=== PATIENT | female | born 1975 | race Caucasian/White ===

== ENCOUNTER 2017-07-20 09:05 | Emergency (ER) | payer OTHER, SELFPAY ==
[2017-07-20 09:16] VITALS: BP 104/52; PULSE 89; RESP 18; TEMP 37.6; O2SAT 95; BMI 24.9
--- NOTE | 2017-07-20 10:21 | HMH.EDFEV ---
ED Disposition Clinical Impression: Rhonchi at right lung base Disposition: Home, Self-Care Condition on Discharge: Good Instructions: Cough Additional Instructions: Zithromax, Albuterol, See [place] in two to five days for recheck Prescriptions: Albuterol Sulfate [Proventil-HFA 90mcg/puff Inh] 1 - 2 puffs IH Q4HP PRN #1 inh PRN Reason: Cough Azithromycin [Azithromycin 500mg Tab] 500 mg PO DAILY #6 tab - Critical Care Critical Care Time: No Attestation: On 07/20/17, the high probability of a clinically significant, sudden or life threatening deterioration of the following system(s) required my full and direct attention, intervention and personal management. The time I documented below is in addition to time spent performing reported procedures but includes the following listed in this critical care notation. Medical Decision Making Vital Signs: 07/20/17 09:16 Temperature 99.7 F H Temperature Source Oral Pulse Rate [Right Brachial] 89 Respiratory Rate 18 Blood Pressure [Right Arm] 104/52 Blood Pressure Mean [Right Arm] 69 Blood Pressure Source [Right Arm] Automatic Cuff Blood Pressure Position [Right Arm] Sitting 02 Sat by Pulse Oximetry 95 Oxygen Delivery Method Room Air - Lab Data Lab results reviewed: Yes: I reviewed the patient's lab results. Lab Results 07/20/17 09:18: Influenza Type A Ag Negative, Influenza Type B Ag Negative - Jag Inquiry Pt receiving controlled substance: No Fever HPI - General Chief Complaint: Fever Stated Complaint: fever body aches back pain Mode of Arrival: Ambulatory Limitations: No Limitations Description of Symptoms (Recalled from ER Triage Doc. by RN): flu like symptoms - History of Present Illness HPI Narrative: Several day history of productive cough. She is a smoker. No vomiting. No rashes. He has myalgias. She is out of her albuterol. complaint: fever Onset (ago): day(s) (5) Temperature Source: subjective Context: multiple patients with similar symptoms Associated symptoms: myalgias, cough Relieving factors: ibuprofen Exacerbating factors: nothing Treatments prior to arrival fever: ibuprofen - Related Data Previous Rx's Medication Instructions Recorded Albuterol Sulfate [Proventil-HFA 1 - 2 puffs IH Q4HP PRN #1 inh 07/20/17 90mcg/puff Inh] Azithromycin [Azithromycin 500mg 500 mg PO DAILY #6 tab 07/20/17 Tab] Allergies Allergy/AdvReac Type Severity Reaction Status Date / Time NKDA Allergy Unknown Uncoded 07/04/17 15:29 [facility] History - *Social History Educational Level: Completed High School Smoking Status: Current every day smoker Tobacco Type: cigarettes # Packs/Day (cigarettes): 1 #Yrs smoked (if former smoker): 25 Alcohol Intake: never - Psychiatric History Expresses thoughts of harming self/others: None Suicide Plan Description: No Plan ROS Obtained: Yes All systems reviewed & no additional complaints except as noted Physical Exam - General General appearance: alert, in no apparent distress - Head Head exam: atraumatic, normocephalic, normal inspection - Eye Eye exam: Present: normal appearance, PERRL, EOMI - ENT ENT exam: Present: normal exam, normal oropharynx, mucous membranes moist, TM's normal bilaterally, normal external ear exam - Neck Neck exam: Present: normal inspection, full ROM, trachea midline - Chest Chest inspection: Present: normal inspection, symmetric chest wall rise. Absent: tenderness - Respiratory Respiratory exam: Absent: normal lung sounds bilaterally, respiratory distress - Expanded Respiratory Exam Location: Right: rhonchi, Lower: rhonchi - Cardiovascular Cardiovascular exam: Present: regular rate, normal rhythm. Absent: JVD - Abdominal Exam Abdominal exam: Present: soft, normal bowel sounds. Absent: distention, tenderness, guarding - Neurological Exam Neurological exam: Present: alert, oriented X3 - Skin Skin exam: Present: warm,
--- NOTE | 2017-07-20 10:24 | ED_ITS ---
ED Disposition Clinical Impression: Rhonchi at right lung base Disposition: Home, Self-Care Condition on Discharge: Good Instructions: Cough Additional Instructions: Zithromax, Albuterol, See [place] in two to five days for recheck Prescriptions: Albuterol Sulfate [Proventil-HFA 90mcg/puff Inh] 1 - 2 puffs IH Q4HP PRN # 1 inh PRN Reason: Cough Azithromycin [Azithromycin 500mg Tab] 500 mg PO DAILY #6 tab - Critical Care Critical Care Time: No Attestation: On 07/20/17, the high probability of a clinically significant, sudden or life threatening deterioration of the following system(s) required my full and direct attention, intervention and personal management. The time I documented below is in addition to time spent performing reported procedures but includes the following listed in this critical care notation. Medical Decision Making Vital Signs: 07/20/17 09:16 Temperature 99.7 F H Temperature Source Oral Pulse Rate [Right Brachial] 89 Respiratory Rate 18 Blood Pressure [Right Arm] 104/52 Blood Pressure Mean [Right Arm] 69 Blood Pressure Source [Right Arm] Automatic Cuff Blood Pressure Position [Right Arm] Sitting 02 Sat by Pulse Oximetry 95 Oxygen Delivery Method Room Air - Lab Data Lab results reviewed: Yes: I reviewed the patient's lab results. Lab Results 07/20/17 09:18: Influenza Type A Ag Negative, Influenza Type B Ag Negative - Jag Inquiry Pt receiving controlled substance: No Fever HPI - General Chief Complaint: Fever Stated Complaint: fever body aches back pain Mode of Arrival: Ambulatory Limitations: No Limitations Description of Symptoms (Recalled from ER Triage Doc. by RN): flu like symptoms - History of Present Illness HPI Narrative: Several day history of productive cough. She is a smoker. No vomiting. No rashes. He has myalgias. She is out of her albuterol. complaint: fever Onset (ago): day(s) (5) Temperature Source: subjective Context: multiple patients with similar symptoms Associated symptoms: myalgias, cough Relieving factors: ibuprofen Exacerbating factors: nothing Treatments prior to arrival fever: ibuprofen - Related Data Previous Rx's Medication Instructions Recorded Albuterol Sulfate [Proventil-HFA 1 - 2 puffs IH Q4HP PRN #1 inh 07/20/17 90mcg/puff Inh] Azithromycin [Azithromycin 500mg 500 mg PO DAILY #6 tab 07/20/17 Tab] Allergies Allergy/AdvReac Type Severity Reaction Status Date / Time NKDA Allergy Unknown Uncoded 07/04/17 15:29 [facility] History - *Social History Educational Level: Completed High School Smoking Status: Current every day smoker Tobacco Type: cigarettes # Packs/Day (cigarettes): 1 #Yrs smoked (if former smoker): 25 Alcohol Intake: never - Psychiatric History Expresses thoughts of harming self/others: None Suicide Plan Description: No Plan ROS Obtained: Yes All systems reviewed & no additional complaints except as noted Physical Exam - General General appearance: alert, in no apparent distress - Head Head exam: atraumatic, normocephalic, normal inspection - Eye Eye exam: Present: normal appearance, PERRL, EOMI - ENT ENT exam: Present: normal exam, normal oropharynx, mucous membranes moist, TM's normal bilaterally, normal external ear exam
[2017-07-20 10:49] VITALS: BP 110/54; PULSE 72; RESP 16
== END 2017-07-20 10:48 | disposition home or self-care (01) ==
PROVIDERS: Emergency Provider Emergency Medicine
DX: R09.89 Other specified symptoms and signs involving the circulatory and respiratory systems (principal); R05 Cough; M79.1 Myalgia; F17.210 Nicotine dependence, cigarettes, uncomplicated
CPT/HCPCS: 87275; 87276; 99282

== ENCOUNTER 2020-05-13 15:27 | Emergency (ER) | payer MEDICAID, SELFPAY ==
[2020-05-13 15:53] VITALS: BP 130/80; PULSE 101; RESP 20; TEMP 37.1; O2SAT 96; BMI 30.2
--- NOTE | 2020-05-13 16:06 | HMH.EDUTC ---
[facility] [place] Disposition Clinical Impression: Bronchitis Sinusitis Qualifiers: Sinusitis location: unspecified location Chronicity: acute Recurrence: non-recurrent Qualified Code(s): J01.90 - Acute sinusitis, unspecified Disposition: Home, Self-Care Condition on Discharge: Good Instructions: Sinusitis, DI for Sinusitis Additional Instructions: Drink plenty of fluids. Take tylenol or ibuprofen for pain or fever. Take the medications as directed. Follow up with your regular doctor. GO TO THE ER FOR ANY WORSENING SYMPTOMS The cough medication (promethazine dm) will make you drowsy, so don't drive or operate heavy machinery after taking it. T Prescriptions: Albuterol Sulfate [Albuterol Sulfate Hfa] 2 puffs IH Q6HP PRN 30 Days #1 [email or web address] PRN Reason: Shortness Of Breath [facility] Promethazine/Dextromethorphan [Promethazine-Dm Syrup] 5 ml PO Q6HP PRN #240 syrup PRN Reason: Cough Transmission Status: Received by [facility] predniSONE [Deltasone 10mg tablet] 10 mg PO BID 4 Days #8 tab Transmission Status: Received by [facility] Azithromycin [Z-Darío 250mg Tab*] 250 mg PO UD DOSE PK #6 tab Transmission Status: Received by [facility] Referrals: Desirae Zavaleta APRN [Primary Care Provider] - Forms: Work/School Release Time of Disposition: 16:30 Medical Decision Making - Medical Records Medical records reviewed: No: I reviewed the patient's medical records. - Jag Inquiry Pt receiving controlled substance: No Vital Signs: 05/13/20 15:53 05/13/20 16:36 Temperature 98.7 F 98.7 F Temperature Source Oral Pulse Rate 101 H Pulse Rate [Left Brachial] 101 H Respiratory Rate 20 20 Blood Pressure 130/80 Blood Pressure [Left Arm] 130/80 Blood Pressure Mean [Left Arm] 96 Blood Pressure Source [Left Arm] Automatic Cuff Blood Pressure Position [Left Arm] Sitting 02 Sat by Pulse Oximetry 96 Oxygen Delivery Method Room Air - Lab Data Lab results reviewed: Yes: I reviewed the patient's lab results. Lab Results 05/13/20 15:50: Influenza Type A Ag Negative, Influenza Type B Ag Negative 05/13/20 16:05: Chlamy pneumoniae PCR Not detected, Adenovirus (PCR) Not detected, B. pertussis DNA (PCR) Not detected, Coronavirus OC43 (PCR) Not detected, Coronavirus HKU1 (PCR) Not detected, Coronavirus 229E (PCR) Not detected, SARS-CoV-2 (PCR) Not detected, Coronavirus NL63 (PCR) Not detected, Human Metapneumovir PCR Not detected, Influenza A (H1) PCR Not detected, Influ A (H1N1/09) PCR Not detected, Influenza A (H3) PCR Not detected, Influenza Type A (PCR) Not detected, Influenza Type B (PCR) Not detected, M. pneumoniae (PCR) Not detected, Parainfluenza 1 (PCR) Not detected, Parainfluenza 2 (PCR) Not detected, Parainfluenza 3 (PCR) Not detected, Parainfluenza 4 (PCR) Not detected, RSV (PCR) Not detected, Entero/Rhino (PCR) Detected A [facility] [place] HPI - General Stated complaint: Congestion, stuffy head Time Seen by Provider: 05/13/20 16:06 Mode of Arrival: Ambulatory Source of Information: Patient Limitations: No Limitations Description of Symptoms (Recalled from Triage Doc. by RN): PATIENT C/O HEAD AND CHEST CONGESTION, DRY COUGH, AND BODY ACHES SINCE THIS WEEKEND HEENT Symptoms (Recalled from RN notes): Yes Resp Symptoms (Recalled from RN notes): Yes Skin Symptoms (Recalled from RN notes): No MS Symptoms (Recalled from RN notes): Yes Functional Status (Recalled from RN notes): WNL - History of Present Illness Provider Complaint: SHe c/o 3 days of worsening chest and sinus congestion. She denies any history of asthma or copd, but she has smoked for the past 25 years. - Related Data Home Medications Medication Instructions Recorded Confirmed buprenorphine 8 mg-naloxone 2 mg 1 tab SUBLINGUAL DAILY 09/12/19 05/13/20 sublingual tablet levothyroxine 112 mcg tablet 112 mcg PO DAILY 09/12/19 05/13/20 E
[2020-05-13 16:35] LABS: UTC Influenza A Antigen Negative (Negative); UTC Influenza B Antigen Negative (Negative)
[2020-05-13 16:36] VITALS: BP 130/80; PULSE 101; RESP 20; TEMP 37.1; O2SAT 96
[2020-05-13 17:33] LABS: Adenovirus,PCR Not Detected (NotDetected); Bordetella Pertussis Not Detected (NotDetected); Chlamydophila Pneumoniae, PCR Not Detected (NotDetected); Coronavirus 19, PCR Not Detected (NotDetected); Coronavirus 229E Not Detected (NotDetected); Coronavirus NL63 Not Detected (NotDetected); Coronavirus OC43 Not Detected (NotDetected); Coronovirus HKU1,PCR Not Detected (NotDetected); Human Metapneumovirus Not Detected (NotDetected); Influenza A, PCR Not Detected (NotDetected); Influenza AH1, 2009 Not Detected (NotDetected); Influenza AH1, PCR Not Detected (NotDetected); Influenza AH3,PCR Not Detected (NotDetected); Influenza B, PCR Not Detected (NotDetected); Mycoplasma Pneumoniae, PCR Not Detected (NotDetected); Parainfluenza 1, PCR Not Detected (NotDetected); Parainfluenza 2, PCR Not Detected (NotDetected); Parainfluenza 3, PCR Not Detected (NotDetected); Parainfluenza 4, PCR Not Detected (NotDetected); Respiratory Syncytial Virus Not Detected (NotDetected)
[2020-05-14 05:18] LABS: Rhinovirus/Enterovirus Detected (NotDetected)
== END 2020-05-13 16:42 | disposition home or self-care (01) ==
PROVIDERS: Emergency Provider Nurse Practitioner Family; PCP Nurse Practitioner Family
DX: Z20.828 Contact with and (suspected) exposure to other viral communicable diseases (principal); J20.9 Acute bronchitis, unspecified; J01.90 Acute sinusitis, unspecified; F17.210 Nicotine dependence, cigarettes, uncomplicated; Z79.899 Other long term (current) drug therapy
CPT/HCPCS: 87581; 87633; 87798; 87804; 99201; U0003

== ENCOUNTER 2021-03-17 10:34 | Emergency (ER) | payer MEDICAID, SELFPAY ==
[2021-03-17 13:08] VITALS: BP 0/0; PULSE 0; RESP 0; TEMP -17.7; TEMP 0
== END 2021-03-17 13:09 | disposition left against medical advice (07) ==
LOC: UTC 10:38
PROVIDERS: Emergency Provider Nurse Practitioner Family; PCP Nurse Practitioner Family
DX: Z53.21 Procedure and treatment not carried out due to patient leaving prior to being seen by health care provider (principal)
CPT/HCPCS: 99202; G0463

== ENCOUNTER → 2021-03-17 11:55 | Outpatient (CLI) | payer MEDICAID, SELFPAY | PROVIDERS: Visit Provider Nurse Practitioner Family | DX: Z20.822 Contact with and (suspected) exposure to COVID-19 (principal) | CPT/HCPCS: U0003 ==

== ENCOUNTER 2021-03-23 20:57 | Emergency (ER) | payer MEDICAID, SELFPAY ==
[2021-03-23 22:00] VITALS: PULSE 85; RESP 18; O2SAT 98; BMI 28.2
[2021-03-23 22:23] VITALS: BP 137/81; PULSE 85; RESP 18; TEMP 36.8
--- NOTE | 2021-03-23 22:38 | HMH.EDUTC ---
[facility] [place] Disposition Clinical Impression: Exposure to COVID-19 virus Disposition: Home, Self-Care Condition on Discharge: Good Instructions: DI for COVID-19 (Suspected or Confirmed ), Preventing the Spread of Coronavirus Discharge Instructions Additional Instructions: Drink plenty of fluids. Take tylenol or ibuprofen for pain or fever. Follow up with your regular doctor. GO TO THE ER FOR ANY WORSENING SYMPTOMS Quarantine until you know the results of your covid-19 test. If it is positive, the health department should call you and give you further instructions about your length of Quarantine and other things. Notify your school or workplace of your results and follow their instructions regarding return to work/school. Referrals: Desirae Zavaleta APRN [Primary Care Provider] - Forms: Work/School Release Time of Disposition: 22:44 Medical Decision Making - Medical Records Medical records reviewed: No: I reviewed the patient's medical records. - Jag Inquiry Pt receiving controlled substance: No Vital Signs: 03/23/21 22:00 03/23/21 22:23 Temperature 98.3 F Pulse Rate 85 Pulse Rate [Left] 85 Respiratory Rate 18 18 Blood Pressure 137/81 02 Sat by Pulse Oximetry 98 Orders (Tests/Meds): ORDERS Category Date Time Status Covid-19 Nasal PCR ([facility]) Routine Lab 03/23/21 22:15 Received [facility] [place] HPI - General Stated complaint: cov test Time Seen by Provider: 03/23/21 22:38 Mode of Arrival: Ambulatory Source of Information: Patient Limitations: No Limitations Description of Symptoms (Recalled from Triage Doc. by RN): pt was exposed to covid positive daughter. pt is having a NICOLAS and nasal congestion. HEENT Symptoms (Recalled from RN notes): Yes (NICOLAS and sinus congestion) Resp Symptoms (Recalled from RN notes): No Skin Symptoms (Recalled from RN notes): No MS Symptoms (Recalled from RN notes): No Functional Status (Recalled from RN notes): na - History of Present Illness Provider Complaint: She was exposed to covid-19 by her daughter having it at her house. She denies any symptoms other than some runny nose that she attributes to allergies. - Related Data Home Medications Medication Instructions Recorded Confirmed buprenorphine 8 mg-naloxone 2 mg 1 tab SUBLINGUAL DAILY 09/12/19 03/17/21 sublingual tablet levothyroxine 112 mcg tablet 112 mcg PO DAILY 09/12/19 03/17/21 Previous Rx's Medication Instructions Recorded Albuterol Sulfate [Albuterol 2 puffs IH Q6HP PRN 30 Days #1 05/13/20 Sulfate Hfa] hfa.aer.ad Allergies Allergy/AdvReac Type Severity Reaction Status Date / Time No Known Allergies Allergy Verified 03/17/21 13:32 - Worker's Comp Is this a Worker's Comp case?: No [facility] History - Hepatitis A Screen Drug use history?: No High risk sexual behaviors?: No History of sexually transmitted infection?: No Currently employed?: No Childcare worker?: No Do you have indoor plumbing?: Yes Do you have electricity?: Yes Attestation statement:: This patient has been screened for Hepatitis A risk factors. I have reviewed the patient's past medical history: Yes Other Medical History: Reports: Thyroid Disease Other Surgeries: Yes: Hysterectomy-Partial, Thyroidectomy - Social History Smoking Status: Current every day smoker Tobacco Type: cigarettes # Packs/Day (cigarettes): 1 #Yrs smoked (if former smoker): 25 Alcohol Intake: never Occupational Status: other Family Hx:: Non-contributory ROS Obtained: Yes All systems reviewed & no additional complaints - Constitutional Constitutional: Reports system reviewed and no additional complaints, except as docu - Eyes Eyes: Reports system reviewed and no additional complaints, except as docu - ENT Ears, Nose, Mouth, and Throat: Reports system reviewed and no additional complaints, except as docu - Cardiovascular Cardiovascular: Reports system reviewed and no additional complaints, except as docu - Respirat
== END 2021-03-23 22:52 | disposition home or self-care (01) ==
PROVIDERS: Emergency Provider Nurse Practitioner Family; PCP Nurse Practitioner Family
DX: Z20.822 Contact with and (suspected) exposure to COVID-19 (principal)
CPT/HCPCS: 99202; G0463; U0003

== ENCOUNTER 2021-05-17 17:26 | Emergency (ER) | payer MEDICAID, SELFPAY ==
[2021-05-17 18:30] VITALS: BP 151/76; PULSE 87; RESP 20; TEMP 36.7; O2SAT 99; BMI 31.9
[2021-05-17 19:05] LABS: UTC Strep Screen (Rapid) Negative (Negative)
--- NOTE | 2021-05-17 19:24 | HMH.EDUTC ---
[facility] [place] Clinical Impression: Cervical lymphadenopathy, Throat pain in adult Disposition: Home, Self-Care Condition on Discharge: Good Additional Instructions: Apply warm wet compresses to the affected sites three or four times per day for 15 minutes as tolerated. Take the antibiotics as directed. Follow up with your regular doctor if you're not starting to get better in 72 hours or so. GO TO THE ER FOR ANY WORSENING SYMPTOMS OR CONCERNS Prescriptions: Amoxicillin/Potassium Clav [Augmentin 875-125 Tablet] 1 tab PO Q12H 10 Days #20 tab Transmission Status: Received by [facility] Referrals: Desirae Zavaleta APRN [Primary Care Provider] - Forms: Work/School Release Time of Disposition: 19:27 Medical Decision Making - Medical Records Medical records reviewed: No: I reviewed the patient's medical records. - Jag Inquiry Pt receiving controlled substance: No Vital Signs: 05/17/21 18:30 05/17/21 19:31 Temperature 98.1 F 98.1 F Temperature Source Oral Pulse Rate 87 Pulse Rate [Left Brachial] 87 Respiratory Rate 20 20 Blood Pressure 151/76 H Blood Pressure [Left Arm] 151/76 H Blood Pressure Mean [Left Arm] 101 Blood Pressure Source [Left Arm] Automatic Cuff Blood Pressure Position [Left Arm] Sitting 02 Sat by Pulse Oximetry 99 Oxygen Delivery Method Room Air - Lab Data Lab results reviewed: Yes: I reviewed the patient's lab results. Lab Results 05/17/21 19:04: Strep Scn Rapid Clinic Negative Orders (Tests/Meds): ORDERS Category Date Time Status Strep Screen Confirmation Routine Micro 05/17/21 19:04 Received [facility] [place] HPI - General Stated complaint: swollen area on throat/lymph node Time Seen by Provider: 05/17/21 19:24 Mode of Arrival: Ambulatory Source of Information: Patient Limitations: No Limitations Description of Symptoms (Recalled from Triage Doc. by RN): PATIENT C/O PAINFUL KNOT TO RIGHT SIDE OF NECK/THROAT SINCE MONDAY. PAINFUL WITH SWALLOWING AND TO TOUCH HEENT Symptoms (Recalled from RN notes): Yes Resp Symptoms (Recalled from RN notes): No Skin Symptoms (Recalled from RN notes): No MS Symptoms (Recalled from RN notes): No Functional Status (Recalled from RN notes): WNL - History of Present Illness Provider Complaint: She c/o right sided sore throat and a tender lump on that side of her neck since yesterday. She denies fever or chills, but she has felt bad. She denies any cough, but she has had some sinus congestion on the right side also. - Related Data Home Medications Medication Instructions Recorded Confirmed buprenorphine 8 mg-naloxone 2 mg 1.75 tab SUBLINGUAL DAILY 09/12/19 05/17/21 sublingual tablet levothyroxine 112 mcg tablet 112 mcg PO DAILY 09/12/19 05/17/21 Previous Rx's Medication Instructions Recorded Amoxicillin/Potassium Clav 1 tab PO Q12H 10 Days #20 tab 05/17/21 [Augmentin 875-125 Tablet] Allergies Allergy/AdvReac Type Severity Reaction Status Date / Time No Known Allergies Allergy Verified 03/17/21 13:32 - Worker's Comp Is this a Worker's Comp case?: No [facility] History - Hepatitis A Screen Drug use history?: No High risk sexual behaviors?: No History of sexually transmitted infection?: No Currently employed?: No Childcare worker?: No Do you have indoor plumbing?: Yes Do you have electricity?: Yes Attestation statement:: This patient has been screened for Hepatitis A risk factors. I have reviewed the patient's past medical history: Yes Other Medical History: Reports: Thyroid Disease Other Surgeries: Yes: Hysterectomy-Partial, Thyroidectomy - Social History Smoking Status: Current every day smoker Tobacco Type: cigarettes # Packs/Day (cigarettes): 1 #Yrs smoked (if former smoker): 25 Alcohol Intake: never Occupational Status: other Family Hx:: Non-contributory ROS Obtained: Yes All systems reviewed & no additional complaints - Constitutional Constitutional: [place]
[2021-05-17 19:31] VITALS: BP 151/76; PULSE 87; RESP 20; TEMP 36.7; O2SAT 99
== END 2021-05-17 19:36 | disposition home or self-care (01) ==
PROVIDERS: Emergency Provider Nurse Practitioner Family; PCP Nurse Practitioner Family
DX: R59.0 Localized enlarged lymph nodes (principal); E03.9 Hypothyroidism, unspecified; F17.210 Nicotine dependence, cigarettes, uncomplicated
CPT/HCPCS: 87880; 99202; G0463

== ENCOUNTER → 2021-08-02 14:57 | Outpatient (CLI) | payer MEDICAID, SELFPAY | PROVIDERS: Visit Provider Nurse Practitioner | DX: U07.1 COVID-19 (principal) | CPT/HCPCS: C9803; U0003; U0005 ==

== ENCOUNTER 2021-11-15 19:23 | Emergency (ER) | payer MEDICAID, SELFPAY ==
--- NOTE | 2021-11-15 20:18 | HMH.EDUTC ---
[facility] [place] Clinical Impression: Viral syndrome, Bronchitis Disposition: Home, Self-Care Condition on Discharge: Good Instructions: DI for Acute Bronchitis, DI for Viral Syndrome Additional Instructions: Drink plenty of fluids. Take tylenol or ibuprofen for pain or fever. Take the medications as directed. Follow up with your regular doctor. GO TO THE ER FOR ANY WORSENING SYMPTOMS Prescriptions: Albuterol Sulfate [Albuterol Sulfate Hfa] 2 puffs IH Q6HP PRN 30 Days #1 each PRN Reason: Shortness Of Breath Transmission Status: Received by [facility] Ondansetron [Zofran 4mg ODT] 4 mg PO Q8HP PRN #20 tab PRN Reason: Nausea Transmission Status: Received by [facility] Benzonatate [Benzonatate 100mg cap] 100 mg PO TIDP PRN #30 cap PRN Reason: Cough Transmission Status: Received by [facility] Azithromycin [Z-Darío 250mg Tab*] 250 mg PO UD DOSE PK #6 tab Transmission Status: Received by [facility] Referrals: Desirae Zavaleta APRN [Primary Care Provider] - Forms: Work/School Release Time of Disposition: 21:01 Medical Decision Making - Medical Records Medical records reviewed: No: I reviewed the patient's medical records. - Jag Inquiry Pt receiving controlled substance: No Vital Signs: 11/15/21 20:21 11/15/21 21:06 Temperature 98.5 F 98.5 F Temperature Source Oral Pulse Rate 119 H Pulse Rate [Left] 119 H Respiratory Rate 18 18 Blood Pressure 136/70 Blood Pressure [Right Arm] 136/70 Blood Pressure Mean [Right Arm] 92 02 Sat by Pulse Oximetry 98 - Lab Data Lab Results 11/15/21 20:08: Influenza Type A Ag Negative, Influenza Type B Ag Negative [facility] [place]PI - General Stated complaint: cough,sourav,runny nose Time Seen by Provider: 11/15/21 20:18 - History of Present Illness Provider Complaint: She states that the has ran a fever, chills, body aches, and had chest congestion and a cough for the past 1 day. - Related Data Home Medications Medication Instructions Recorded Confirmed buprenorphine 8 mg-naloxone 2 mg 1.75 tab SUBLINGUAL DAILY 09/12/19 05/17/21 sublingual tablet levothyroxine 112 mcg tablet 112 mcg PO DAILY 09/12/19 05/17/21 Previous Rx's Medication Instructions Recorded Amoxicillin/Potassium Clav 1 tab PO Q12H 10 Days #20 tab 05/17/21 [Augmentin 875-125 Tablet] Albuterol Sulfate [Albuterol 2 puffs IH Q6HP PRN 30 Days #1 each 11/15/21 Sulfate Hfa] Azithromycin [Z-Darío 250mg Tab*] 250 mg PO UD DOSE PK #6 tab 11/15/21 Benzonatate [Benzonatate 100mg 100 mg PO TIDP PRN #30 cap 11/15/21 cap] Ondansetron [Zofran 4mg ODT] 4 mg PO Q8HP PRN #20 tab 11/15/21 Allergies Allergy/AdvReac Type Severity Reaction Status Date / Time No Known Allergies Allergy Verified 03/17/21 13:32 [facility] History - Hepatitis A Screen Attestation statement:: This patient has been screened for Hepatitis A risk factors. I have reviewed the patient's past medical history: Yes Other Medical History: Reports: Thyroid Disease Other Surgeries: Yes: Hysterectomy-Partial, Thyroidectomy - Social History Smoking Status: Current every day smoker Tobacco Type: cigarettes # Packs/Day (cigarettes): 1 #Yrs smoked (if former smoker): 25 Alcohol Intake: never Occupational Status: other Family Hx:: Non-contributory ROS Obtained: Yes All systems reviewed & no additional complaints - Constitutional Constitutional: Denies chills, Denies fever(s), Reports poor appetite, Reports malaise - Eyes Eyes: Denies eye discharge - ENT Ears, Nose, Mouth, and Throat: Denies dizziness, Denies otalgia, Reports sore throat - Cardiovascular Cardiovascular: Denies chest pain - Respiratory Respiratory: Reports chest congestion, Reports cough Physical Exam - General General appearance: alert, in no apparent distress - Head Head exam: atraumatic, normocephalic, normal inspection - Ey
[2021-11-15 20:20] LABS: UTC Influenza A Antigen Negative (Negative); UTC Influenza B Antigen Negative (Negative)
[2021-11-15 20:21] VITALS: BP 136/70; PULSE 119; RESP 18; TEMP 36.9; O2SAT 98; BMI 31.1
[2021-11-15 21:06] VITALS: BP 136/70; PULSE 119; RESP 18; TEMP 36.9
== END 2021-11-15 21:11 | disposition home or self-care (01) ==
PROVIDERS: Emergency Provider Nurse Practitioner Family; PCP Nurse Practitioner Family
DX: B34.9 Viral infection, unspecified (principal); J20.9 Acute bronchitis, unspecified; F17.210 Nicotine dependence, cigarettes, uncomplicated
CPT/HCPCS: 87804; 99212; G0463

== ENCOUNTER → 2022-04-20 15:42 | Outpatient (CLI) | payer MEDICAID, SELFPAY ==
[2022-04-20 19:18] LABS: Alanine Aminotransferase 30 U/L (12-78); Albumin Level 4.1 g/dl (3.5-5.0); Albumin/Globulin Ratio 1.1 (1.1-1.8); Alkaline Phosphatase 104 U/L (38-126); Anion Gap 14.6 mEq/L (5-15); Aspartate Amino Transferase 30 U/L (14-36); Bilirubin,Total < 0.1 mg/dl (0.2-1.3); Blood Urea Nitrogen 11 mg/dl (7-17); Calcium 9.2 mg/dl (8.4-10.2); Carbon Dioxide 25 mmol/L (22.0-30.0); Chloride 105 mmol/L (98-107); Cholesterol 180 mg/dl (140-200); Estimated Glomerular Filt Rate 108 ml/min (>60); GFR (African American) 130 ML/MIN (>60); Globulin 3.6 g/dL (1.3-3.2); Glucose 124 mg/dl (74-100); HDL Cholesterol 30 mg/dl (40-60); Potassium 4.6 mmoL/L (3.5-5.1); Sodium 140 mmol/L (136-145); Total Protein,Serum 7.7 g/dl (6.3-8.2); Triglycerides 100 mg/dl (30-150); VLDL Cholesterol 20 mg/dL (0-40)
[2022-04-20 19:28] LABS: Direct LDL Cholesterol 116.95 mg/dL (100-129)
[2022-04-20 19:48] LABS: Thyroid Stimulating Hormone 7.52 uIU/mL (0.465-4.68)
[2022-04-20 21:10] LABS: Basophils # 0.1 K/mm3 (0-0.2); Basophils % 1.8 % (0.1-2.0); Eosinophils # 0.1 K/mm3 (0.0-0.4); Eosinophils % 2.2 % (0.1-12.0); Hematocrit 41.5 % (37.0-47.0); Hemoglobin 13.3 g/dL (12.2-16.2); Lymphocytes # 2.1 K/mm3 (0.7-4.5); Lymphocytes % 44.6 % (10-50); Mean Corpuscular HGB Conc 32.2 g/dL (31.8-35.4); Mean Corpuscular Hemoglobin 31.8 pg (27.0-31.2); Mean Corpuscular Volume 98.9 fl (81-99); Mean Platelet Volume 8.7 fl (7.4-10.4); Monocytes # 0.3 K/mm3 (0.1-1.0); Monocytes % 5.3 % (1.7-9.3); Neutrophils # 2.2 K/mm3 (1.8-7.8); Neutrophils % 46.1 % (37.0-80.0); Platelet Count 326 K/mm3 (142-424); White Blood Count 4.7 K/mm3 (4.8-10.8)
[2022-04-22 07:12] LABS: HIV Screen 4th Generation wRfx Non Reactive (Non Reactive); Hepatitis C Antibody >11.0 s/co ratio (0.0-0.9)
[2022-04-23 00:07] LABS: ALT (SGPT) P5P 26 IU/L (0-40); Alpha 2-Macroglobulins, Qn 228 mg/dL (110-276); Apolipoprotein A-1 93 mg/dL (116-209); Bilirubin, Total 0.1 mg/dL (0.0-1.2); Fibrosis Score 0.12 (0.00-0.21); GGT 40 IU/L (0-60); Haptoglobin 158 mg/dL (42-296); Necroinflammat Activity Grade A0-No activity (.); Necroinflammat Activity Score 0.09 (0.00-0.17)
[2022-04-23 01:07] LABS: Hep A Ab, Total Positive (Negative); Hep B Core Ab, Total Positive (Negative); Hep B Surface Ab, Qual Non Reactive (.)
[2022-04-24 22:07] LABS: HCV Genotype Charge YES; Hepatitis C Genotype 1a (.)
== END ==
PROVIDERS: PCP Nurse Practitioner Family; Visit Provider Nurse Practitioner Family
DX: B34.9 Viral infection, unspecified (principal); R93.0 Abnormal findings on diagnostic imaging of skull and head, not elsewhere classified; Z11.4 Encounter for screening for human immunodeficiency virus [HIV]
CPT/HCPCS: 80053; 80061; 81596; 84443; 85025; 86703; 86704; 86706; 86708; 87380; 87522; 87902; G0432

== ENCOUNTER → 2022-05-02 09:36 | Outpatient (CLI) | payer MEDICAID, SELFPAY ==
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
== END ==
PROVIDERS: PCP Nurse Practitioner Family; Visit Provider Nurse Practitioner Family
DX: R93.0 Abnormal findings on diagnostic imaging of skull and head, not elsewhere classified (principal)
CPT/HCPCS: 70553; A9576

== ENCOUNTER 2022-06-29 19:30 | Emergency (ER) | payer MEDICAID, SELFPAY ==
--- NOTE | 2022-06-29 19:45 | EXP.UTC ---
Discharge Plan Disposition Patient Disposition: Home, Self-Care Condition: Good Prescriptions Prescriptions: New promethazine 25 mg Tablet 25 mg PO Q6H PRN (Reason: Nausea And Vomiting) Qty: 20 0RF ondansetron 4 mg Tablet,Disintegrating 4 mg PO Q8H PRN (Reason: Nausea) Qty: 20 0RF No Action buprenorphine-naloxone 8-2 mg tablet, sublingual 1.75 tab SUBLINGUAL DAILY Label Comments: DISSOLVE 2 SUBLINGUALLY EVERY DAY levothyroxine 112 mcg tablet 112 mcg PO DAILY Qty: 90 0RF albuterol sulfate 8.5 GM HFA aerosol inhaler 2 puffs inhalation Q6HP PRN (Reason: Shortness Of Breath) 30 Days Qty: 1 5RF ondansetron 4 MG tablet,disintegrating 4 mg PO Q8HP PRN (Reason: Nausea) Qty: 20 0RF Referrals Follow up/Referrals: Josh Levy APRN [Primary Care Provider] - See instructions Activity Restrictions/Add. Instructions Additional Instructions/Restrictions: Drink plenty of fluids. Take tylenol or ibuprofen for pain or fever. Take the medications as directed. Follow up with your regular doctor. GO TO THE ER FOR ANY WORSENING SYMPTOMS Clinical Impressions Clinical Impression: Acute viral syndrome, Gastroenteritis Stand Alone Forms Stand Alone Forms: Work/School Release Discharge ED Provider: Jian To [facility] General Stated complaint: cough,NICOLAS,Body aches Abd Pain,vomiting Time Seen by Provider: 06/29/22 19:37 History of Present Illness Provider Complaint: She states that since last night she has had n/v/d. This began after she at a [employer] on her lunch at work. Related Data Home Medications Medication Instructions Recorded Confirmed buprenorphine 8 mg-naloxone 2 mg 1.75 tab sublingual DAILY RECOVERY 09/12/19 04/20/22 sublingual tablet Previous Rx's Medication Instructions Recorded albuterol sulfate 90 mcg/actuation 2 puffs inhalation Q6HP PRN 11/15/21 aerosol inhaler Shortness Of Breath 30 days #1 ea ondansetron 4 mg disintegrating 4 mg PO Q8HP PRN Nausea #20 tabs 11/15/21 tablet levothyroxine 112 mcg tablet 112 mcg PO DAILY NO THYROID #90 06/23/22 tabs ondansetron 4 mg disintegrating 4 mg PO Q8H PRN Nausea #20 tabs 06/29/22 tablet promethazine 25 mg tablet 25 mg PO Q6H PRN Nausea And 06/29/22 Vomiting #20 tabs Allergies Allergy/AdvReac Type Severity Reaction Status Date / Time No Known Allergies Allergy Verified 06/29/22 20:08 [facility] Disclaimer: The information contained in this section may have been updated after the patient was seen, as this information can be updated by other users. Medical History Hypothyroidism Surgical History H/O oral surgery H/O: hysterectomy Family History Father Cancer Mother Coronary artery disease Heart attack Hypertension Social History Smoking Status: Current every day smoker tobacco type: cigarettes packs per day: 1 second hand exposure: No alcohol intake: never substance use type: former substance user current occupational status: other Travel in the last 8 weeks: None ROS Obtained: Yes All systems reviewed & no additional complaints except as documented Constitutional Constitutional: Denies chills, Denies fever(s) and Reports poor appetite ENT Ears, Nose, Mouth, and Throat: Denies dizziness and Denies sore throat Cardiovascular Cardiovascular: Denies dyspnea Respiratory Respiratory: Denies chest congestion, Denies cough and Denies dyspnea Gastrointestinal Gastrointestingal: Reports as per HPI; Denies abdominal pain Genitourinary Female Genitourinary: Denies difficulty voiding, Denies dysuria, Denies hematuria, Denies urinary frequency, Denies urinary incontinence, Denies urinary hesitancy and Denies urinary urgency Musculoskeleta
[2022-06-29 20:06] VITALS: BP 117/78; PULSE 107; RESP 20; TEMP 36.9; O2SAT 95; BMI 29.6
[2022-06-29 20:11] LABS: UTC Strep Screen (Rapid) Negative (Negative)
[2022-06-29 20:26] LABS: Coronavirus 19, PCR Not Detected (NotDetected); Influenza B, PCR Not Detected (NotDetected)
[2022-06-29 20:40] VITALS: BP 117/78; PULSE 107; RESP 20; TEMP 36.9
[2022-06-29 22:29] LABS: Influenza A, PCR Detected (NotDetected)
== END 2022-06-29 20:44 | disposition home or self-care (01) ==
PROVIDERS: Emergency Provider Nurse Practitioner Family; PCP Nurse Practitioner Family
DX: J10.1 Influenza due to other identified influenza virus with other respiratory manifestations (principal); K52.9 Noninfective gastroenteritis and colitis, unspecified
CPT/HCPCS: 87880; 99212; C9803; G0463; U0003; U0005

== ENCOUNTER 2022-12-06 09:00 | Emergency (ER) | payer MEDICAID, SELFPAY ==
[2022-12-06 09:10] VITALS: BP 121/87; PULSE 114; RESP 22; TEMP 36.7; O2SAT 99; BMI 32.4
--- NOTE | 2022-12-06 09:18 | XR_ITS ---
FINAL REPORT CLINICAL HISTORY: Rt sided chest wall pain FINDINGS: TWO-VIEW CHEST The heart size is normal. The mediastinum is normal. There are right mid lung opacities consistent with pneumonia. There is mild bibasilar atelectasis. There is no pneumothorax. IMPRESSION: Right lung pneumonia with mild bibasilar atelectasis. Reviewed, Interpreted and Dictated by Kyler Brown III, MD Transcribed by Consuelo Ram Authenticated and [facility]
--- NOTE | 2022-12-06 09:24 | EXP.UTC ---
Discharge Plan Disposition Patient Disposition: Home, Self-Care Condition: Good Prescriptions Prescriptions: New prednisone 10 mg tablet 10 mg PO BID 5 Days Qty: 10 0RF azithromycin [Zithromax Z-Darío] 250 mg tablet See Rx Instructions .ROUTE .COMPLEX 5 Days Qty: 6 0RF Rx Instructions: For 250 mg dose pack: take 500 mg today (day 1), then 250 mg for 4 days (days 2-5) cefdinir 300 mg capsule 300 mg PO BID Qty: 20 0RF guaifenesin [Mucinex] 600 mg tablet extended release 12hr 1,200 mg PO BID PRN (Reason: cough) Qty: 20 0RF benzonatate 100 mg capsule 100 mg PO TID PRN (Reason: cough) Qty: 15 0RF No Action gabapentin 300 mg capsule 300 mg PO TID PRN (Reason: pain) Qty: 90 2RF buprenorphine-naloxone 8-2 mg tablet, sublingual 1.75 tab SUBLINGUAL DAILY Label Comments: DISSOLVE 2 SUBLINGUALLY EVERY DAY levothyroxine 112 mcg tablet 112 mcg PO DAILY Rx Instructions: TAKE ONE TABLET BY MOUTH ONCE A DAY FOR THYROID Referrals Follow up/Referrals: Zack Valadez MD [Primary Care Provider] - See instructions Activity Restrictions/Add. Instructions Additional Instructions/Restrictions: Start antibiotic today. Be sure to complete entire prescription even if feeling better Monitor temp. Tylenol every 4 hours as needed and / or ibuprofen every 6 hours as needed ( As long as your primary care physician has told you that it ok to take both. For fever/aches/pains ER if no less than 101 despite Tylenol or Motrin Humidifier/vaporizer or hot steamy shower Inhaler every 4-6 hours as needed like we discussed. If unsure how to use it, ask pharmacist to demonstrate how. Should help open airways and improve cough, wheezing, and shortness of breath Mucinex during the day for your cough and cough suppressant only at night. Be sure to drink lots of water. *Tessalon Perles will not cause drowsiness but use at bedtime to help stop cough so that you may get some rest. *Start steroid today. Helps with inflammation therefore, cough and wheezing. Follow directions on the package. Reviewed side effects. Patient reports taking them before. Follow up IMMEDIATELY for new or worsening of symptoms OR no noticeable improvement over the next 48-72 hours. 911 immediately for any life threatening symptoms such as chest pain or difficulty breathing Clinical Impressions Clinical Impression: Pneumonia Qualifiers: Pneumonia type: due to unspecified organism Laterality: right Lung location: unspecified part of lung Qualified Code(s): J18.9 - Pneumonia, unspecified organism Instructions Patient Instructions: Pneumonia-Adult Discharge ED Provider: Sammie Hardin [facility] [place] General Stated complaint: RT lung pain Mode of Arrival: Ambulatory Source of Information: Patient Limitations: No Limitations Time Seen by Provider: 12/06/22 09:20 Description of Symptoms (Recalled from Triage Doc. by RN): PATIENT C/O CHILLS, BODY ACHES, HEADACHE, COUGH, AND RIGHT LUNG PAIN WITH INHALATION THAT STARTED YESTERDAY HEENT Symptoms (Recalled from RN notes): Yes Resp Symptoms (Recalled from RN notes): Yes Skin Symptoms (Recalled from RN notes): No MS Symptoms (Recalled from RN notes): No Functional Status (Recalled from RN notes): WNL History of Present Illness Provider Complaint: Patient states that she has been not feeling well for a couple of days States that she has been having cough, chills, body aches, headache cough and chest congestion States that she woke up this morning and was having some pain in her right lung when she would take a deep breath States after getting up and moving around it was still bothering her so she came in Related Data Home Medications Medication Instructions Recorded Confirmed buprenorphine 8 mg-naloxone 2 mg 1.75 tab sublingual DAILY RECOVERY 09/12/19 12/06/22 sublingual tablet levothyroxine 112 mcg tablet 112 mcg PO DAILY Hypothyroid 12/06/22
[2022-12-06 10:51] VITALS: BP 121/87; PULSE 114; RESP 22; TEMP 36.7; O2SAT 99
== END 2022-12-06 10:52 | disposition home or self-care (01) ==
PROVIDERS: Emergency Provider Nurse Practitioner; PCP Family Medicine
DX: J18.9 Pneumonia, unspecified organism (principal); R07.1 Chest pain on breathing; R51.9 Headache, unspecified; F17.210 Nicotine dependence, cigarettes, uncomplicated; E03.9 Hypothyroidism, unspecified
CPT/HCPCS: 71046; 99212; 99214; G0463

== ENCOUNTER → 2023-07-06 09:07 | Outpatient (CLI) | payer OTHER, SELFPAY ==
[2023-07-06 18:10] LABS: Basophils % 0.8 % (0.1-2.0); Eosinophils # 0.1 K/mm3 (0.0-0.4); Eosinophils % 2.2 % (0.1-12.0); Hematocrit 42.8 % (37.0-47.0); Hemoglobin 14.4 g/dL (12.2-16.2); Lymphocytes # 2.1 K/mm3 (0.7-4.5); Lymphocytes % 39.6 % (10-50); Mean Corpuscular HGB Conc 33.6 g/dL (31.8-35.4); Mean Corpuscular Hemoglobin 33.1 pg (27.0-31.2); Mean Corpuscular Volume 98.7 fl (81-99); Mean Platelet Volume 8.3 fl (7.4-10.4); Monocytes # 0.2 K/mm3 (0.1-1.0); Monocytes % 4.5 % (1.7-9.3); Neutrophils # 2.8 K/mm3 (1.8-7.8); Platelet Count 270 K/mm3 (142-424); Red Blood Count 4.34 M/mm3 (4.20-5.40); Red Cell Distribution Width 14.5 % (11.5-17.5); White Blood Count 5.3 K/mm3 (4.8-10.8)
[2023-07-06 20:14] LABS: Alanine Aminotransferase 40 U/L (12-78); Albumin Level 4.2 g/dl (3.5-5.0); Albumin/Globulin Ratio 1.1 (1.1-1.8); Alkaline Phosphatase 88 U/L (38-126); Aspartate Amino Transferase 35 U/L (14-36); Bilirubin,Total 0.3 mg/dl (0.2-1.3); Blood Urea Nitrogen 11 mg/dl (7-17); Calcium 8.9 mg/dl (8.4-10.2); Carbon Dioxide 25 mmol/L (22.0-30.0); Chloride 107 mmol/L (98-107); Chol/HDL Ratio 6.9 (1-3.5); Cholesterol 214 mg/dl (140-200); Estimated Glomerular Filt Rate 107 ml/min (>60); GFR (African American) 130 ML/MIN (>60); Globulin 3.9 g/dL (1.3-3.2); Glucose 105 mg/dl (74-100); HDL Cholesterol 31 mg/dl (40-60); Sodium 138 mmol/L (136-145); Total Protein,Serum 8.1 g/dl (6.3-8.2); Triglycerides 125 mg/dl (30-150); VLDL Cholesterol 25 mg/dL (0-40)
[2023-07-06 20:25] LABS: Direct LDL Cholesterol 140.49 mg/dL (100-129)
[2023-07-06 20:34] LABS: 25-OH Vitamin D, Total 26.1 ng/mL (30-100)
[2023-07-06 22:11] LABS: Amphetamine/Metha Screen,Urine Negative ng/ml (<1000)
[2023-07-06 22:12] LABS: Barbiturates Screen,Urine Negative ng/ml (<200)
[2023-07-06 22:13] LABS: Benzodiazepines Screen,Urine Negative ng/ml (<200); Cannabinoid Screen,Urine Negative ng/ml (<50)
[2023-07-06 22:14] LABS: Cocaine Screen,Urine Negative ng/ml (<300)
[2023-07-06 22:15] LABS: Methadone Screen,Urine Negative ng/ml (<300); Opiate Screen,Urine Negative ng/ml (<300)
[2023-07-06 22:16] LABS: Phencyclidine Screen,Urine Negative ng/ml (<25)
== END ==
PROVIDERS: PCP Nurse Practitioner Family; Visit Provider Nurse Practitioner Family
DX: E55.9 Vitamin D deficiency, unspecified (principal); Z79.899 Other long term (current) drug therapy; R53.83 Other fatigue; Z68.31 Body mass index [BMI] 31.0-31.9, adult
CPT/HCPCS: 80053; 80061; 80305; 82306; 84443; 85025

== ENCOUNTER 2023-12-04 12:00 | Outpatient (CLI) | payer OTHER, SELFPAY ==
[2023-12-04 22:21] LABS: Chol/HDL Ratio 4.9 (1-3.5); Cholesterol 230 mg/dl (140-200); HDL Cholesterol 47 mg/dl (40-60); Triglycerides 135 mg/dl (30-150); VLDL Cholesterol 27 mg/dL (0-40)
[2023-12-04 22:32] LABS: Direct LDL Cholesterol 135.49 mg/dL (100-129)
[2023-12-04 22:36] LABS: Free Thyroxine Index 2.6 ug/dL (5.93-13.13); T4 (Thyroxine) 8.7 ug/dl (5.53-11.0); Triiodothryronine (T3) Uptake 30 % (23.5-40.5)
[2023-12-04 22:43] LABS: Hemoglobin A1C 5.5 % (4.0-6.0)
[2023-12-04 22:50] LABS: Thyroid Stimulating Hormone 6.76 uIU/mL (0.465-4.68)
== END 2023-12-04 23:59 | disposition home or self-care (01) ==
LOC: LAB.DROPOF 12-05 12:00
PROVIDERS: Visit Provider Family Medicine
DX: E66.09 Other obesity due to excess calories (principal); Z68.31 Body mass index [BMI] 31.0-31.9, adult; Z79.899 Other long term (current) drug therapy
CPT/HCPCS: 80061; 83036; 84436; 84443; 84479

== ENCOUNTER 2024-01-08 15:59 | Emergency (ER) | payer OTHER, SELFPAY ==
[2024-01-08 16:30] VITALS: BP 119/77; PULSE 90; RESP 18; TEMP 36.8; O2SAT 96; BMI 30.4
--- NOTE | 2024-01-08 16:49 | ED_ITS ---
Discharge Plan Disposition Patient Disposition: Home, Self-Care Condition: Good Prescriptions Prescriptions: New azithromycin [Zithromax] 250 mg tablet See Rx Instructions .ROUTE .COMPLEX Qty: 6 0RF Rx Instructions: For 250 mg dose pack: take 500 mg today (day 1), then 250 mg for 4 days (days 2-5) methylprednisolone [Medrol (Darío)] 4 mg tablets,dose pack See Rx Instructions .ROUTE .COMPLEX 6 Days Qty: 21 0RF Rx Instructions: 4 mg orally ;Medrol dose taper darío phehykiavzfwaze-ljgljmieg-NI [Bromfed DM] 2-30-10 mg/5 mL syrup 10 ml PO Q6H PRN (Reason: cold symptoms) Qty: 200 0RF No Action Brixadi 64 mg/0.18 mL solution, extended rel syringe See Rx Instructions .ROUTE .COMPLEX Rx Instructions: see rx instructions levothyroxine 112 mcg tablet 112 mcg PO DAILY Qty: 90 1RF Rx Instructions: TAKE ONE TABLET BY MOUTH ONCE A DAY FOR THYROID atorvastatin [Lipitor] 10 mg tablet 10 mg PO HS Qty: 30 2RF Referrals Follow up/Referrals: Evita Pitts APRN [Primary Care Provider] - See instructions Activity Restrictions/Add. Instructions Additional Instructions/Restrictions: Take medication as prescribed. If symptoms persist or worsen, then follow up with PCP. If you become SOA return to the ER. Clinical Impressions Clinical Impression: Upper respiratory tract infection Qualifiers: URI type: unspecified URI Qualified Code(s): J06.9 - Acute upper respiratory infection, unspecified Instructions Patient Instructions: DI for Acute Bronchitis Discharge ED Provider: Montserrat Edge [facility] General Stated complaint: lung pain congestion cough diarrhea Mode of Arrival: Ambulatory Source of Information: Patient Limitations: No Limitations Time Seen by Provider: 01/08/24 16:49 Description of Symptoms (Recalled from Triage Doc. by RN): Pt's symptosm are right lungs hurt when she breathes in, head congestion, stomach cramping, and diarrhea. HEENT Symptoms (Recalled from RN notes): Yes Resp Symptoms (Recalled from RN notes): Yes Skin Symptoms (Recalled from RN notes): No MS Symptoms (Recalled from RN notes): No Functional Status (Recalled from RN notes): n/a History of Present Illness Provider Complaint: Pt reports that she has not felt well since Monday. She states that she has had a couple bouts of loose stool since Monday with abdominal cramping. She states that she has right lung pain with inspiration that is better today. She states that she has had sinus congestion and drainage. Related Data Home Medications Medication Instructions Recorded Confirmed buprenorphine 64 mg/0.18 mL See Rx Instructions .Route .COMPLEX 07/06/23 01/08/24 solution,exten.rel.subcutaneous syringe (Brixadi Monthly) Previous Rx's Medication Instructions Recorded atorvastatin 10 mg tablet (Lipitor) 10 mg PO HS #30 tabs 12/05/23 levothyroxine 112 mcg tablet 112 mcg PO DAILY Hypothyroid #90 12/05/23 tabs azithromycin 250 mg tablet See Rx Instructions PO .COMPLEX #6 01/08/24 (Zithromax) tabs pkftufzozmeewsy-ecqlgezfxjxfbqs-LL 10 ml PO Q6H PRN cold symptoms 01/08/24 2 mg-30 mg-10 mg/5 mL oral syrup #200 mL (Bromfed DM) methylprednisolone 4 mg tablets in See Rx Instructions .Route 01/08/24 a dose pack (Medrol (Darío)) .COMPLEX 6 days #21 tabs Allergies Allergy/AdvReac Type Severity Reaction Status Date / Time No Known Allergies Allergy Verified 01/08/24 16:44 Worker's Comp Is this a Worker's Comp case?: No [facility] Disclaimer: The information contained in this section may have been updated after the patient was seen, as this information can be updated by other users. Medical History (Updated 01/08/24 @ 17:02 by Montserrat Edge APRN) Viral syndrome Throat pain in adult Exposure to COVID-19 virus Patient left without being seen Bronchitis Sinusitis Rhonchi at right lung base Gastroenteritis Acute viral syndrome Pneumonia Shortness of breath Hypothyroidism Surgical History H/O: hysterectomy H/O oral surgery Family History Father Cancer Mother Coronary artery disease Heart attack Hypertension Social History Smoking Status: Current every day smoker tobacco type: cigarettes packs per day: 1 second hand exposure: No alcohol intake: never substance use type: former substance user current occupational status: other Travel in the last 8 weeks: None ROS Obtained: Yes All systems reviewed & no additional complaints except as documented Constitutional Constitutional: Reports system reviewed and no additional complaints, except as documented and Reports malaise Eyes Eyes: Reports system reviewed and no additional complaints, except as documented ENT Ears, Nose, Mouth, and Throat: Reports system reviewed and no additional complaints, except as documented, Reports nasal congestion and Reports nasal discharge Cardiovascular Cardiovascular: Reports system reviewed and no additional complaints, except as documented Respiratory Respiratory: Reports system reviewed and no additional complaints, except as documented, Reports chest congestion, Reports cough and Reports pain on inspiration Gastrointestinal Gastrointestingal: Reports system reviewed and no additional complaints, except as documented Genitourinary Female Genitourinary: Reports system reviewed and no additional complaints, except as documented Musculoskeletal Musculoskeletal: Reports system reviewed and no additional complaints, except as documented Integumentary/Breasts Skin/Breast: Reports system reviewed and no additional complaints, except as documented Neurologic Neurologic: Reports system reviewed and no additional complaints, except as documented Endocrine Endocrine: Reports system reviewed and no additional complaints, except as documented Hematologic/Lymphatic Henatologic/Lymphatic: Reports system reviewed and no additional complaints, except as documented Allergic/Immunologic Allergic/Immunologic: Reports system reviewed and no additional complaints, except as documented Physical Exam General General appearance: alert Comment: ill appearing Head Head exam: atraumatic and normocephalic Eye Eye exam: Present normal appearance ENT ENT exam: Present mucous membranes moist Expanded ENT Exam External ear exam: Present normal external inspection Nasal speculum exam: Bilateral: other (clear drainage with edematous mucosa) Mouth exam: Present normal external inspection Teeth exam: Present normal inspection Throat exam: Present normal inspection Neck Neck exam: Present normal inspection; Absent lymphadenopathy Chest Chest inspection: Present normal inspection and symmetric chest wall rise Respiratory Respiratory exam: Present wheezes Expanded Respiratory Exam Location: Left: wheezes, Right: wheezes and rales, Upper: wheezes and rales and Lower: rales Cardiovascular Cardiovascular exam: Present regular rate, normal rhythm and normal heart sounds Abdominal Exam Abdominal exam: Present soft and normal bowel sounds Extremities Exam Extremities exam: Present normal inspection Back Exam Back exam: Present normal inspection Neurological Exam Neurological exam: Present alert and oriented X3 Skin Skin exam: Present warm, dry and intact Lymphatic Lymphatic Findings: no adenopathy Medical Decision Making Jag Inquiry Pt receiving controlled substance: No Jag was queried for this patient: No Vital Signs: 01/08/24 16:30 Temperature 98.2 F Temperature Source Oral Pulse Rate [Right Radial] 90 Respiratory Rate 18 Blood Pressure [Right Arm] 119/77 Blood Pressure Mean [Right Arm] 91 Blood Pressure Source [Right Arm] Automatic Cuff Blood Pressure Position [Right Arm] Sitting 02 Sat by Pulse Oximetry 96 Oxygen Delivery Method Room Air
[2024-01-08 17:11] VITALS: BP 119/77; PULSE 90; RESP 18; TEMP 36.8; O2SAT 96
== END 2024-01-08 17:11 | disposition home or self-care (01) ==
PROVIDERS: Emergency Provider Nurse Practitioner Family; PCP Family Medicine
DX: R07.1 Chest pain on breathing (principal); J06.9 Acute upper respiratory infection, unspecified; R09.81 Nasal congestion
CPT/HCPCS: 99212; 99214; G0463

== ENCOUNTER 2025-02-26 12:10 | Outpatient (CLI) | payer OTHER, SELFPAY ==
[2025-02-26 19:28] LABS: Hematocrit 37.3 % (37.0-47.0); Hemoglobin 12.4 g/dL (12.2-16.2); Immature Granulocytes % 0.1 %; Mean Corpuscular HGB Conc 33.2 g/dL (31.8-35.4); Mean Corpuscular Hemoglobin 32.3 pg (27.0-31.2); Mean Corpuscular Volume 97.1 fl (81-99); Nucleated Red Blood Cells % 0 %; Platelet Count 312 K/mm3 (142-424); Red Blood Count 3.84 M/mm3 (4.20-5.40); Red Cell Distribution Width-SD 44.8 fL; White Blood Count 6.9 K/mm3 (4.8-10.8)
[2025-02-26 20:25] LABS: Alanine Aminotransferase 18 U/L (12-78); Albumin Level 4.5 g/dl (3.5-5.0); Albumin/Globulin Ratio 1.4 (1.1-1.8); Alkaline Phosphatase 92 U/L (38-126); Anion Gap 9.8 mEq/L (5-15); Aspartate Amino Transferase 23 U/L (14-36); Bilirubin,Total 0.3 mg/dl (0.2-1.3); Blood Urea Nitrogen 12 mg/dl (7-17); Calcium 9.5 mg/dl (8.4-10.2); Carbon Dioxide 31 mmol/L (22.0-30.0); Chloride 103 mmol/L (98-107); Cholesterol 170 mg/dl (140-200); Creatinine,Serum 0.80 mg/dl (0.52-1.04); Estimated Glomerular Filt Rate 76 ml/min (>60); GFR (African American) 92 ML/MIN (>60); Globulin 3.2 g/dL (1.3-3.2); Glucose 99 mg/dl (74-100); HDL Cholesterol 43 mg/dl (40-60); Potassium 3.8 mmoL/L (3.5-5.1); Sodium 140 mmol/L (136-145); Total Protein,Serum 7.7 g/dl (6.3-8.2); Triglycerides 80 mg/dl (30-150)
[2025-02-26 20:40] LABS: Free Thyroxine Index 2.0 ug/dL (5.93-13.13); T4 (Thyroxine) 5.6 ug/dl (5.53-11.0); Triiodothryronine (T3) Uptake 35 % (23.5-40.5)
[2025-02-26 20:54] LABS: Thyroid Stimulating Hormone 11.20 uIU/mL (0.465-4.68)
--- OUTSIDE RECORDS SUMMARY | 2025-02-28 12:12 | XMS_ITS | Encounter Summary ---
Author Organization [facility] Address [address] [place] [address] Care Team Providers Care Manager Ent Name Role Phone Daniela Regan JUSTINE Primary Care Provider [phone] Anthony Guerrero MD Unavailable [phone] Reason for Visit * Reason Onset Date Comments HCN - Patient Message 01/14/2025 Prior-auth approved for imaging Encounter Details Date Type Department Care Team (Late st Contact Info) Description 01/14/2025 Telephone [facility] [address] [place] [address] Anthony Gurerero MD [address] [place] [address] HCN - Patient Message (Prior-auth approved for imaging) Social History Tobacco Use Types Packs/Day Years Used Date Smoking Tobacco: Every Day Cigarettes 1 26.2 Started: 12/29/1998 Passive Smoke Exposure: Never Smokeless Tobacco: Never Alcohol Use Standard Drinks/Week Comments Never 0 (1 standard drink = 0.6 oz pur e alcohol) Comments No Sex and Gender Information Value Date Recorded Sex Assigned at Not on file Legal Sex Female 7:31 PM EDT Gender Identity Not on file Sexual Orientation Not on file documented as of this encounter Miscellaneous Notes * Telephone Encounter - Tomas Self - 01/14/2025 4:09 PM EDT Patient Phone Message Reason for Call: Requesting for Prior-auth on imaging has been approved. Will also fax Ref: [id number] Best contact number and optimal time of day to reach caller: Reachable at [phone] Note: Please do not reply to this message. Follow-up communication and further actions as a result of this message need to be communicated with the patient directly, if the patient is not active onMyChart. If the patient is active on MyChart, they will receive notification of the communication/outcome via MyChart. documented in this encounter Plan of Treatment Upcoming Encounters Date Type Department Care Team (Late st Contact Info) Description 04/03/2025 1:15 PM EDT Appointment [facility] [address] [place] [address] 04/03/2025 3:00 PM EDT [facility] [address] [place] [address] Anthony Guerrero MD [address] [address] documented as of this encounter Visit Diagnoses Not on filedocumented in this encounter Additional Health Concerns Assessment Noted Time A fall risk assessment has been complete d for the patient 03/15/2024 1:35 PM EDT A Body Mass Index follow-up plan has been documented for the patient 03/15/2024 2:42 PM EDT documented as of this encounter Care Teams Manager Ent Relationship Specialty Start Date End Date Daniela Regan APRN [address] [place] [id number] PCP - General 11/27/20 Anthony Guerrero MD [address] [facility] [place] [id number] Surgeon Neurosurgery 05/19/22 documented as of this encounter
--- OUTSIDE RECORDS SUMMARY | 2025-02-28 12:12 | XMS_ITS | Encounter Summary ---
Author Organization Healthcare Address [address] [place] [address] Care Team Providers Care Hotel Manager Name Role Phone Daniela Regan JUSTINE Primary Care Provider Anthony Guerrero MD Unavailable [phone] Encounter Details Date Type Department Care Team (Late Contact Info) Description 05/02/2022 Orders Only External Location [address] [place] [address] Josh Levy APRN [address] [place] [address] Social History Tobacco Use Types Packs/Day Years Used Date Smoking Tobacco: Never Assessed Comments Unknown Sex and Gender Information Value Date Recorded Sex Assigned at Not on file Legal Sex Female 7:31 PM EDT Gender Identity Not on file Sexual Orientation Not on file documented as of this encounter Plan of Treatment Upcoming Encounters Date Type Department Care Team (Late Contact Info) Description 04/03/2025 1:15 PM EDT Appointment [facility] [address] [place] [address] 04/03/2025 3:00 PM EDT Office Visit [place] [facility] [address] [place] [address] Anthony Guerrero MD [address] [place] [id number] documented as of this encounter Procedures Procedure Name Priority Date/Time Associated Diagnosis Comments MR HEAD W AND WO IV CONTRAST 05/02/2022 9:40 AM EDT documented in this encounter Results * MR Head w and wo IV Contrast (05/02/2022 9:40 AM EDT) Anatomical Region Laterality Modality Head Magnetic Resonan ce 05/02/2022 9:40 AM EDT Josh Levy GALLERY OR MUSEUM CURATOR IMG MRI PROCEDURES Final Re sult documented in this encounter Visit Diagnoses Not on filedocumented in this encounter Care Teams Hotel Manager Relationship Specialty Start Date End Date Daniela Regan APRN [address] [place] [address] PCP - General 11/27/20 Anthony Guerrero MD [address] [address] Surgeon Neurosurgery 05/19/22 documented as of this encounter
--- OUTSIDE RECORDS SUMMARY | 2025-02-28 12:12 | XMS_ITS | Clinical Summary ---
Author Organization [facility] Address [address] [place] [address] Care Team Providers Care Chip Unloader Name Role Phone Daniela Regan JUSTINE Primary Care Provider [phone] Anthony Guerrero MD Unavailable [phone] Allergies No known active allergies Medications levothyroxine (Synthroid, Levoxyl) 112 MCG tablet Take 1 tablet (112 mcg) by mouth 1 (one) time each day. 2 Active atorvastatin (Lipitor) 10 MG tablet Take 1 tablet (10 mg) by mouth 1 (one) time each day. 4 Active Brixadi 64 MG/0.18ML injection Inject 64 mg subcutaneously every four weeks 4 Active nystatin (Mycostatin) 634227 UNIT/ML suspension 3 Active glecaprevir-pi brentasvir 100-40 MG tablet tablet Take 3 tablets by mouth 1 (one) time each day. 4 Active tobramycin-dex amethasone (Tobradex) ophthalmic suspension Administer 1 drop into both eyes 3 (three) times a day. 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 05/11/2022 Encounters Date Type Department Care Team Description 02/11/2025 Telephone [facility] [address], [address] [place] [address] Anthony Guerrero MD 01/14/2025 Telephone [facility] [address], [address] [place] [address] Anthony Guerrero MD HCN - Patient Message (Prior-auth approved for imaging) from Last 3 Months Family History Medical History Relation Name Comments Cancer Father Coronary artery disease Mother Relation Name Status Comments Father Mother Social History Tobacco Use Types Packs/Day Years Used Date Smoking Tobacco: Every Day Cigarettes 1 26.2 Started: 12/29/1998 Passive Smoke Exposure: Never Smokeless Tobacco: Never Tobacco Cessation:Ready to Q uit: Not Asked; Counseling Given: Not Answered Alcohol Use Standard Drinks/Week Comments Never 0 (1 standard drink = 0.6 oz pur e alcohol) Comments No Sex and Gender Information Value Date Recorded Sex Assigned at Not on file Legal Sex Female 7:31 PM EDT Gender Identity Not on file Sexual Orientation Not on file Last Filed Vital Signs Vital Sign Reading Time Taken Comments Blood Pressure 119/80 03/20/2024 12:00 PM EDT Pulse 69 03/20/2024 12:05 PM EDT Temperature 36.3 C (97.3 F) 03/20/2024 11:35 AM EDT Respiratory Rate 12 03/20/2024 12:05 PM EDT Oxygen Saturation 93% 03/20/2024 12:05 PM EDT Inhaled Oxygen Concentration - - Weight 90.3 kg (199 lb 1.2 oz) 03/20/2024 8:47 A M EDT Height 170.2 cm (5' 7 ) 03/20/2024 8:47 AM EDT Body Mass Index 31.18 03/20/2024 8:47 AM EDT Plan of Treatment Upcoming Encounters Date Type Department Care Team (Late st Contact Info) Description 04/03/2025 1:15 PM EDT Appointment [facility] [address] [place] [address] 04/03/2025 3:00 PM EDT Office Visit [facility] [address], [address] [place] [address] Anthony Guerrero MD [address] [place] [address] Health Maintenance Due Date Last Done Comments [facility]-Depression Screening 1976 [facility]-HIV Screening 1976 [facility]-/Child/Adol SDOH Screenings 1976 [facility]- SDOH Screenings 02/17/1994 [facility]-Adult SDOH Screenings 02/17/1994 [facility]-DTaP,Tdap,and Td Vaccines (1 - Tdap) 02/17/1995 [facility]-Hepatitis B Vaccines (1 of 3 - 19+ 3-dose series) 02/17/1995 01/12/2024 [facility]-Pneumococcal Vaccine: Pediatrics (0 to 5 Years) and At-Risk Patients (6 to 49 Years) (1 of 2 - PCV) 02/17/1995 [id number] Vaccine (2 - Sepncer risk series) 02/01/2021 01/04/2021 CT Colonography 02/17/2021 Colonoscopy 02/17/2021 FIT-DNA 02/17/2021 FIT 02/17/2021 FOBT 02/17/2021 Sigmoidoscopy 02/17/2021 [facility]-Colorectal Cancer Screening 02/17/2021 [facility]-Influenza Vaccine (#1) 2025 [facility]-Zoster Vaccines (1 of 2) 02/17/2026 [facility]-Hepatitis A Vaccines Aged Out 11/23/2018 No longer eligible based on patient's age to complete this topic [facility]-Obesity Intervention Completed 024, 02/01/2024, 11/17/2022, Additional history exists HPV Vaccines Aged Out No longer eligi ble based on patient's age to complete this topic [facility]-HIB Vaccines Aged Out No longer e ligible based on patient's age to complete this topic [facility]-IPV Vaccines Aged Out No longer e ligible based on patient's age to complete this topic [facility]-Rotavirus Vaccines Aged Out No lo nger eligible based on patient's age to complete this topic Insurance [employer] Care Teams Chip Unloader Relationship Specialty Start Date End Date Daniela Regan APRN [address] [place] [address] PCP - General 11/27/20 Anthony Guerrero MD [address] [address] Surgeon Neurosurgery 05/19/22
--- OUTSIDE RECORDS SUMMARY | 2025-02-28 12:12 | XMS_ITS | Encounter Summary ---
Author Organization [facility] Address [address] [place] [address] Care Team Providers Care Screen Printing Machine Operator Helper Name Role Phone TannerporfirioDaniela Leona FLETCHER Primary Care Provider [phone] Anthony Guerrero MD Unavailable [phone] Encounter Details Date Type Department Care Team (Late st Contact Info) Description 02/11/2025 Telephone [facility] [address], [address]st [place] [address] Anthony Guerrero MD [address] [place] [address] Social History Tobacco Use Types Packs/Day Years [...] encounter Miscellaneous Notes * Telephone Encounter - Blessing Pompa - 02/11/2025 1:21 PM EDT MRI and OV rescheduled. Called and made patient aware and printed reminders to mail. * Telephone Encounter - Michelle Zavaleta - 02/11/2025 10:24 AM EDT Patient Phone Message Reason for Call: Patient calling to r/s missed MRI/follow up same day Best contact number and optimal time of day to reach caller: [phone] Note: Please do not reply to this [...] Info) Description 04/03/2025 1:15 PM EDT Appointment [facility] [address] [place] [address] 04/03/2025 3:00 PM EDT [facility] [address], [address]st [place] [address] Anthony Guerrero MD [address] [address] documented as of this encounter Visit Diagnoses Not on filedocumented in this encounter Additional Health Concerns Assessment Noted Time A fall risk assessment has been complete d for the patient 03/15/2024 1:35 PM EDT A Body Mass Index follow-up plan has been documented for the patient 03/15/2024 2:42 PM EDT documented as of this encounter Care Teams Screen Printing Machine Operator Helper Relationship Specialty Start Date End Date Daniela Regan APRN [address] [place] [address] PCP - General 11/27/20 Anthony Guerrero MD [address] [place] [address] Surgeon Neurosurgery 05/19/22 documented as of this encounter
== END 2025-02-26 23:59 | disposition home or self-care (01) ==
LOC: LAB.DROPOF 02-28 12:11
PROVIDERS: PCP Family Medicine; Visit Provider Family Medicine
DX: E03.9 Hypothyroidism, unspecified (principal); M54.50 Low back pain, unspecified; G89.29 Other chronic pain
CPT/HCPCS: 80053; 80061; 84436; 84443; 84479; 85025

== ENCOUNTER 2025-03-07 15:53 | Outpatient (CLI) | payer OTHER, SELFPAY ==
--- NOTE | 2025-03-07 15:30 | US_ITS ---
FINAL REPORT TECHNIQUE: Imaging of the right neck was obtained at the area of palpable abnormality. CLINICAL HISTORY: mass FINDINGS: There is a 21 mm hypoechoic but hypervascular nodule. Residual thyroid not excluded. There is a more inferior, second, similar-appearing 18 mm hypoechoic nodule. In the region of the left thyroidectomy bed is a 15 mm hypodense soft tissue nodule. IMPRESSION: Soft tissue nodules in the right neck and region of the left thyroidectomy bed which could be residual or recurrent thyroid tissue. If patient has had thyroidectomy due to cancer, recurrent disease not excluded. Consider CT neck for further evaluation. Reviewed, Interpreted and Dictated by Mary Aleman MD Transcribed by Lucy Brownlee Authenticated and [facility]
--- NOTE | 2025-03-07 15:56 | XR_ITS ---
PROCEDURE INFORMATION: Exam: XR Lumbosacral Spine Exam date and time: 03/07/2025 4:08 PM Age: 50 years old Clinical indication: Low back pain TECHNIQUE: Imaging protocol: Radiologic exam of the lumbosacral spine. Views: 2 or 3 views. COMPARISON: No relevant prior studies available. FINDINGS: Bones/joints: No acute fracture or spondylolisthesis. Disc spaces are preserved. Anterior osteophytes seen at L2-L3 and L3-L4. Mild facet arthrosis at L4-L5 and L5-S1. SI joints are unremarkable. Soft tissues: Unremarkable. IMPRESSION: Mild degenerative changes.
--- OUTSIDE RECORDS SUMMARY | 2025-03-07 15:56 | XMS_ITS | Encounter Summary ---
Author Organization [facility] Address [address] [place] [address] Care Team Providers Care Toter Name Role Phone TannerporfirioDaniela Leona FLETCHER Primary Care Provider [phone] Anthony Guerrero MD Unavailable [phone] Encounter Details Date Type Department Care Team (Late st Contact Info) Description 02/11/2025 Telephone [facility] [address], [address] [place] [address] Anthony Guerrero MD [address] [place] [address] Social History Tobacco Use Types [...] optimal time of day to reach caller: [phone] Note: Please do not reply to this [...] Info) Description 04/03/2025 1:15 PM EDT Appointment [facility] [address] [place] [address] 04/03/2025 3:00 PM EDT [facility] [address], [address] [place] [address] Anthony Guerrero MD [address] [address] documented as of this encounter Visit Diagnoses Not on filedocumented in this encounter Additional Health Concerns Assessment Noted Time A fall risk assessment has been complete d for the patient 03/15/2024 1:35 PM EDT A Body Mass Index follow-up plan has been documented for the patient 03/15/2024 2:42 PM EDT documented as of this encounter Care Teams Toter Relationship Specialty Start Date End Date Daniela Regan APRN [address] [place] [address] PCP - General 11/27/20 Anthony Guerrero MD [address] [place] [address] Surgeon Neurosurgery 05/19/22 documented as of this encounter
--- OUTSIDE RECORDS SUMMARY | 2025-03-07 15:56 | XMS_ITS | Clinical Summary ---
Author Organization [facility] Address [address] [place] [address] Care Team Providers Care Duct Layer Supervisor Name Role Phone Daniela Regna JUSTINE Primary Care Provider [phone] Anthony Guerrero MD Unavailable [phone] Allergies No known active allergies Medications levothyroxine (Synthroid, Levoxyl) 112 MCG tablet Take 1 tablet (112 mcg) by mouth 1 (one) time each day. 2 Active atorvastatin (Lipitor) 10 MG tablet Take 1 tablet (10 mg) by mouth 1 (one) time each day. 4 Active Brixadi 64 MG/0.18ML injection Inject 64 mg subcutaneously every four weeks 4 Active nystatin (Mycostatin) 606975 UNIT/ML suspension 3 Active glecaprevir-pi brentasvir 100-40 [...] Type Department Care Team Description 02/11/2025 Telephone [facility] [address], [address] [place] [address] Antohny Guerrero MD 01/14/2025 Telephone [facility] [address], [address] [place] [address] Anthony Guerrero MD HCN - Patient Message [...] Info) Description 04/03/2025 1:15 PM EDT Appointment [facility] [address] [place] [address] 04/03/2025 3:00 PM EDT Office Visit [facility] [address], [address] [place] [address] Anthony Guerrero MD [address] [place] [address] Health Maintenance Due Date Last [...] Years) (1 of 2 - PCV) 02/17/1995 [id number] Vaccine (2 - Spencer risk series) 02/01/2021 01/04/2021 CT Colonography 02/17/2021 [...] Insurance [employer] Care Teams Duct Layer Supervisor Relationship Specialty Start Date End Date Daniela Regan APRN [address] [place] [address] PCP - General 11/27/20 Anthony Guerrero MD [address] [address] Surgeon Neurosurgery 05/19/22
--- OUTSIDE RECORDS SUMMARY | 2025-03-07 15:56 | XMS_ITS | Encounter Summary ---
Author Organization [facility] Address [address] [place] [address] Care Team Providers Care Operating Room Assistant Name Role Phone Daniela Regan JUSTINE Primary Care Provider Anthony Guerrero MD Unavailable [phone] Encounter Details Date Type Department Care Team (Late Contact Info) Description 05/02/2022 Orders Only External Location [address] [place] [address] Josh Levy APRN [address] [place] [address] Social History Tobacco Use Types Packs/Day Years [...] Info) Description 04/03/2025 1:15 PM EDT Appointment [facility] [address] [place] [address] 04/03/2025 3:00 PM EDT Office Visit [place] [facility] [address], [address] [place] [address] Anthony Guerrero MD [address] [place] [address] documented as of this encounter Procedures Procedure Name Priority Date/Time Associated Diagnosis Comments MR HEAD W AND WO IV CONTRAST 05/02/2022 9:40 AM EDT documented in this encounter Results * MR Head w and wo IV Contrast (05/02/2022 9:40 AM EDT) Anatomical Region Laterality Modality Head Magnetic Resonan ce 05/02/2022 9:40 AM EDT Josh Levy STEAM FINISHER IMG MRI PROCEDURES Final Re sult documented in this encounter Visit Diagnoses Not on filedocumented in this encounter Care Teams Operating Room Assistant Relationship Specialty Start Date End Date Daniela Regan APRN [address] [place] [address] PCP - General 11/27/20 Anthony Guerrero MD [address] [address] Surgeon Neurosurgery 05/19/22 documented as of this encounter
--- OUTSIDE RECORDS SUMMARY | 2025-03-07 15:56 | XMS_ITS | Clinical Summary ---
Author Organization [facility] Address [address] [place], [place] [address] Phone [email or web address] Care Team Providers Care Medical Radiation Therapist Name Role Phone Unavailable Primary Care Provider Unavailabl e Allergies No known active allergies Medications buprenorphine-n aloxone (SUBOXONE) 8-2 MG per SL tablet Place 1 tablet under the tongue 1 (one) time each day. Dose unknown Active LEVOTHYROXINE SODIUM PO Take by mouth. Dose/frequen cy unknown Active Active Problems Problem Noted Date Diagnosed Date Head injury 03/15/2022 Social History Tobacco Use Types Packs/Day Years Used Date Smoking Tobacco: Unknown Comments Unknown Sex and Gender Information Value Date Recorded Sex Assigned at Not on file Legal Sex Female 1:00 AM CDT Gender Identity Not on file Sexual Orientation Not on file Last Filed Vital Signs Vital Sign Reading Time Taken Comments Blood Pressure 136/93 03/15/2022 1:10 AM EDT Pulse 131 03/15/2022 1:10 AM EDT Temperature - - Respiratory Rate 20 03/15/2022 1:10 AM EDT Oxygen Saturation 100% 03/15/2022 1:10 AM EDT Inhaled Oxygen Concentration - - Weight - - Height - - Body Mass Index - - Plan of Treatment Health Maintenance Due Date Last Done Comments CT Colonography 1976 Cervical Cancer Screening Combo 1976 Colonoscopy 1976 Colorectal Cancer Screening Combo 1976 DNA Cologuard 1976 Dental Cleaning/Exam 1976 FIT or FOBT Test 1976 HPV / Cotest 1976 Pap Testing 1976 Sigmoidoscopy 1976 Hepatitis B Immunization (1 of 3 - 19+ 3-dose series) 02/17/1995 Tetanus Diphtheria and Pertu ssis Immunization (1 - Tdap) 02/17/1995 Breast Cancer Screening 02/17/2006 Covid-19 Immunization (1 - 2 02425 season) 2024 Influenza Immunization (#1) 2025 HIB Immunization Aged Out No longer e ligible based on patient's age to complete this topic HPV Immunization Aged Out No longer e ligible based on patient's age to complete this topic Hepatitis A Immunization Aged Out No longer eligible based on patient's age to complete this topic Pneumococcal: Ped (0 to 5 Yr s) and At-Risk Member (6 to 64 Yrs) Aged Out No longer e ligible based on patient's age to complete this topic Polio Immunization Aged Out No longer eligible based on patient's age to complete this topic Insurance OPT OUT NO COPAY NB
--- OUTSIDE RECORDS SUMMARY | 2025-03-07 15:56 | XMS_ITS | Encounter Summary ---
Author Organization [facility] Address [address] [place] [address] Care Team Providers Care Diamond Blender Name Role Phone Daniela Regan JUSTINE Primary Care Provider [phone] Anthony Guerrero MD Unavailable [phone] Reason for Visit * Reason Onset Date Comments HCN - Patient Message 01/14/2025 Prior-auth approved for imaging Encounter Details Date Type Department Care Team (Late st Contact Info) Description 01/14/2025 Telephone [place] [facility] [address], [address] [place] [address] Anthony Guerrero MD [address] [place] [address] HCN - Patient Message (Prior-auth [...] has been approved. Will also fax Ref: [id number] Best contact number and optimal time of day to reach caller: Reachable at [phone] Note: Please do not reply to this [...] Description 04/03/2025 1:15 PM EDT Appointment [facility] [address] [place] [address] 04/03/2025 3:00 PM EDT Office Visit [place] [facility] [address], [address] [place] [address] Anthony Guerrero MD [address] [address] documented as of this encounter Visit Diagnoses Not on filedocumented in this encounter Additional Health Concerns Assessment Noted Time A fall risk assessment has been complete d for the patient 03/15/2024 1:35 PM EDT A Body Mass Index follow-up plan has been documented for the patient 03/15/2024 2:42 PM EDT documented as of this encounter Care Teams Diamond Blender Relationship Specialty Start Date End Date Daniela Regan APRN [address] [place] [address] PCP - General 11/27/20 Anthony Guerrero MD [address] [facility] [place] [address] Surgeon Neurosurgery 05/19/22 documented as of this encounter
== END 2025-03-07 23:59 | disposition home or self-care (01) ==
LOC: RAD 15:54
PROVIDERS: PCP Family Medicine; Visit Provider Family Medicine
DX: M47.817 Spondylosis without myelopathy or radiculopathy, lumbosacral region (principal); R22.1 Localized swelling, mass and lump, neck
CPT/HCPCS: 72100; 76536

== ENCOUNTER 2025-03-19 16:08 | Outpatient (CLI) | payer OTHER, SELFPAY ==
--- NOTE | 2025-03-19 16:00 | MR_ITS ---
PROCEDURE INFORMATION: Exam: MR Lumbar Spine Without and With Contrast Exam date and time: 03/19/2025 4:29 PM Age: 50 years old Clinical indication: Low back pain; Additional info: Low back pain, injury years ago, got hit with a forklift and fell, worsening back pain since TECHNIQUE: Imaging protocol: Magnetic resonance imaging of the lumbar spine without and with contrast. Contrast material: PROHANCE; Contrast volume: 17 ml; Contrast route: IV; COMPARISON: CR XR LUMBAR SPINE 2-3V 03/07/2025 4:08 PM FINDINGS: Bones/joints: Vertebral body heights, alignment and overall marrow signal is within normal limits. A high signal lesion is noted within the L1 and L3 vertebral body to the right of midline compatible with a hemangioma. There is mild spondylosis noted with disc bulging and facet arthropathy. Spinal cord: Visualized cord, conus medullaris and cauda equina are unremarkable without compression. L1-L2: No significant disc bulge or herniation. No severe spinal canal stenosis. No significant neural foraminal narrowing. L2-L3: At L2-L3 there is disc bulging with facet arthropathy and mild ligament thickening. There is mild canal and neural foraminal narrowing. L3-L4: At L3-L4 there is mild disc bulging and facet arthropathy. There is minor canal and neural foraminal narrowing. L4-L5: NoAt L4-L5 there is disc bulging with ligamentous thickening and facet arthropathy causing mild canal narrowing and thol-th-mvkehiem neural foraminal stenosis, worse on the right. L5-S1: At L5-S1 there is disc bulging with facet arthropathy. There is no significant canal narrowing and moderate neural foraminal stenosis. Soft tissues: Unremarkable. IMPRESSION: Lumbar spondylosis as described, affecting mainly the neural foramina.
--- OUTSIDE RECORDS SUMMARY | 2025-03-19 16:11 | XMS_ITS | Encounter Summary ---
Author Organization [facility] Address [address] [place] [address] Care Team Providers Care Identity Management Developer Name Role Phone Daniela Regan JUSTINE Primary Care Provider Anthony Guerrero MD Unavailable [phone] Encounter Details Date Type Department Care Team (Late Contact Info) Description 05/02/2022 Orders Only External Location [address] [place] [address] Josh Levy APRN [address] [place] [address] Social History Tobacco Use Types Packs/Day Years [...] Info) Description 04/03/2025 1:15 PM EDT Appointment [facility] [address] [place] [address] 04/03/2025 3:00 PM EDT Office Visit [place] [facility] [address] [place] [address] Anthony Guerrero MD [address] [place] [address] documented as of this encounter Procedures Procedure Name Priority Date/Time Associated Diagnosis Comments MR HEAD W AND WO IV CONTRAST 05/02/2022 9:40 AM EDT documented in this encounter Results * MR Head w and wo IV Contrast (05/02/2022 9:40 AM EDT) Anatomical Region Laterality Modality Head Magnetic Resonan ce 05/02/2022 9:40 AM EDT Josh Levy DUST COLLECTOR ATTENDANT IMG MRI PROCEDURES Final Re sult documented in this encounter Visit Diagnoses Not on filedocumented in this encounter Care Teams Identity Management Developer Relationship Specialty Start Date End Date Daniela Regan APRN [address] [place] [address] PCP - General 11/27/20 Anthony Guerrero MD [address] [address] Surgeon Neurosurgery 05/19/22 documented as of this encounter
--- OUTSIDE RECORDS SUMMARY | 2025-03-19 16:11 | XMS_ITS | Encounter Summary ---
Author Organization [facility] Address [address] [place] [address] Care Team Providers Care Stage Producer Name Role Phone Daniela Regan JUSTINE Primary Care Provider [phone] Anthony Guerrero MD Unavailable [phone] Reason for Visit * Reason Onset Date Comments HCN - Patient Message 01/14/2025 Prior-auth approved for imaging Encounter Details Date Type Department Care Team (Late st Contact Info) Description 01/14/2025 Telephone [place] [facility] [address] [place] [address] Anthony Guerrero MD [address] [place] [address] HCN - Patient Message (Prior-auth [...] has been approved. Will also fax Ref: [id number] Best contact number and optimal time of day to reach caller: Reachable at [phone] Note: Please do not reply to this [...] Description 04/03/2025 1:15 PM EDT Appointment [facility] [address] [place] [address] 04/03/2025 3:00 PM EDT Office Visit [place] [facility] [address] [place] [address] Anthony Guerrero MD [address] [address] documented as of this encounter Visit Diagnoses Not on filedocumented in this encounter Additional Health Concerns Assessment Noted Time A fall risk assessment has been complete d for the patient 03/15/2024 1:35 PM EDT A Body Mass Index follow-up plan has been documented for the patient 03/15/2024 2:42 PM EDT documented as of this encounter Care Teams Stage Producer Relationship Specialty Start Date End Date Daniela Regan APRN [address] [place] [address] PCP - General 11/27/20 Anthony Guerrero MD [address] [facility] [place] [address] Surgeon Neurosurgery 05/19/22 documented as of this encounter
--- OUTSIDE RECORDS SUMMARY | 2025-03-19 16:11 | XMS_ITS | Encounter Summary ---
Author Organization [facility] Address [address] [place] [address] Care Team Providers Care Salon Coordinator Name Role Phone TannerporfirioDaniela Leona FLETCHER Primary Care Provider [phone] Anthony Guerrero MD Unavailable [phone] Encounter Details Date Type Department Care Team (Late st Contact Info) Description 02/11/2025 [facility]phone [facility] [address] [place] [address] Anthony Guerrero MD [address] [place] [address] Social History Tobacco Use Types [...] optimal time of day to reach caller: [phone] Note: Please do not reply to this [...] Info) Description 04/03/2025 1:15 PM EDT Appointment [facility] [address] [place] [address] 04/03/2025 3:00 PM EDT Office Visit [facility] [address] [place] [address] Anthony Guerrero MD [address] [address] documented as of this encounter Visit Diagnoses Not on filedocumented in this encounter Additional Health Concerns Assessment Noted Time A fall risk assessment has been complete d for the patient 03/15/2024 1:35 PM EDT A Body Mass Index follow-up plan has been documented for the patient 03/15/2024 2:42 PM EDT documented as of this encounter Care Teams Salon Coordinator Relationship Specialty Start Date End Date Daniela Regan APRN [address] [place] [id number] PCP - General 11/27/20 Anthony Guerrero MD [address] [place] [id number] Surgeon Neurosurgery 05/19/22 documented as of this encounter
--- OUTSIDE RECORDS SUMMARY | 2025-03-19 16:11 | XMS_ITS | Clinical Summary ---
Author Organization [facility] Address [address] [place] [address] Care Team Providers Care It Training Specialist Name Role Phone Daniela Regan JUSTINE Primary Care Provider [phone] Anthony Guerrero MD Unavailable [phone] Allergies No known active allergies Medications levothyroxine (Synthroid, Levoxyl) 112 MCG tablet Take 1 tablet (112 mcg) by mouth 1 (one) time each day. 2 Active atorvastatin (Lipitor) 10 MG tablet Take 1 tablet (10 mg) by mouth 1 (one) time each day. 4 Active Brixadi 64 MG/0.18ML injection Inject 64 mg subcutaneously every four weeks 4 Active nystatin (Mycostatin) 666851 UNIT/ML suspension 3 Active glecaprevir-pi brentasvir 100-40 [...] Type Department Care Team Description 02/11/2025 Telephone [facility] [address] [place] [id number] Anthony Guerrero MD 01/14/2025 Telephone [facility] [address] [place] [phone] Anthony Guerrero MD [facility] - Patient Message [...] Info) Description 04/03/2025 1:15 PM EDT Appointment [facility] [address] [place] [address] 04/03/2025 3:00 PM EDT [facility] [address] [place] [phone] Anthony Guerrero MD [address] [place] [address] Health Maintenance Due Date Last Done Comments [facility]-Depression Screening 1976 [facility]-HIV Screening 1976 [facility]-Infant/Child/Adol SDOH Screenings 1976 [facility]- SDOH Screenings 02/17/1994 [facility]-Adult SDOH Screenings 02/17/1994 [facility]-DTaP,Tdap,and Td Vaccines (1 - Tdap) 02/17/1995 [facility]-Hepatitis B Vaccines (1 of 3 - 19+ 3-dose series) 02/17/1995 01/12/2024 [facility]-Pneumococcal Vaccine: Pediatrics (0 to 5 Years) and At-Risk Patients (6 to 49 Years) (1 of 2 - PCV) 02/17/1995 [id number] Vaccine (2 - Spencer risk series) 02/01/2021 [...] Insurance [employer] Care Teams It Training Specialist Relationship Specialty Start Date End Date Daniela Regan APRN [address] [place] [address] PCP - General 11/27/20 Anthony Guerrero MD [address] [phone] Surgeon Neurosurgery 05/19/22
--- OUTSIDE RECORDS SUMMARY | 2025-03-19 16:11 | XMS_ITS | Clinical Summary ---
Author Organization [facility] Address [address] [place], [place] [id number] Phone [email or web address] Care Team Providers Care Teacher'S Aide Name Role Phone Unavailable Primary Care Provider [...]
== END 2025-03-19 23:59 | disposition home or self-care (01) ==
LOC: RAD 16:09
PROVIDERS: Visit Provider Family Medicine
DX: M47.816 Spondylosis without myelopathy or radiculopathy, lumbar region (principal); T14.90XA Injury, unspecified, initial encounter
CPT/HCPCS: 72158